=== PATIENT | male | born 1965 | race African-American/Black ===

== ENCOUNTER → 2019-03-28 | Outpatient (CLI) | payer OTHER ==
[~2019-03-28] MED LIST: ACETAMINOPHEN325 M1 PO; ADVIL200 M3 PO; ASPIR-LOW81 MG PO; COLACE 100 MG100 MG PO; IBUPROFEN 200200 M1; IBUPROFEN 200200 M1 PO; IBUPROFEN 600600 M1 PO; IRON325 M1 PO; KEFLEX500 M2 PO; LISINOPRIL-HCT1 EAC2 PO; LISINOPRIL10 MG PO; MAGNESIUM250 M1 PO; MIRALAX17 GM PO; MOTION RELIEF25 MG PO; MULTI VITAMIN1 EACH PO; OXYCODONE HCL 55 MG PO; POTASSIUM99 M1 PO; VALIUM2 MG PO; VITAMIN B-121000 MCG PO; VITAMIN C1000 MG PO; ZOFRAN ODT4 MG PO
== END ==
LOC: RAD 16:44
DX: M19.011 Primary osteoarthritis, right shoulder (principal); M75.91 Shoulder lesion, unspecified, right shoulder

== ENCOUNTER 2019-04-16 05:39 | Day surgery (SDC) | payer OTHER ==
[~2019-04-16] VITALS: Ht 167.6 cm; Wt 97.5 kg
[~2019-04-16 05:39] MED LIST changes: -ACETAMINOPHEN325 M1 PO; -COLACE 100 MG100 MG PO; -IBUPROFEN 200200 M1 PO; -KEFLEX500 M2 PO; -MIRALAX17 GM PO; -OXYCODONE HCL 55 MG PO
[2019-04-16 06:53] LABS: CALCIUM 9.6 mg/dL (8.5-10.1); CREATININE 1.4 mg/dL (0.7-1.3); POTASSIUM 3.2 mmol/L (3.5-5.1)
[2019-04-16 07:57] VITALS: BP 141/81
[2019-04-16] MEDS ORDERED: OXYCODONE HCL 55 MG PO (08:57)
[2019-04-16] MEDS ORDERED: IBUPROFEN 200200 M1 PO (08:57)
[2019-04-16] MEDS ORDERED: COLACE 100 MG100 MG PO (08:58)
[2019-04-16] MEDS ORDERED: ACETAMINOPHEN325 M1 PO (08:58)
[2019-04-16] MEDS ORDERED: MIRALAX17 GM PO (08:58)
[2019-04-16] MEDS ORDERED: KEFLEX500 M2 PO (08:59)
[2019-04-16 09:10] VITALS: BP 141/81
--- NOTE | 2019-04-16 17:04 | EKG ---
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
--- NOTE | 2019-04-17 17:06 | PATH ---
[facility] [address] [place] [address] PATHOLOGY RPT PROCEDURE Name: ANNETTE BARRIENTOS Room #: DEP [facility] [place] [place] M.R.#: [id number] Admission: 04/16/19 Date of : 69 Discharge: 04/16/19 Report #: [id number] Path Case #: [id number] [facility] Accession Number: [id number] . 01 Material submitted: . shoulder - RIGHT SHOULDER MASS. Modifiers: right . 01 Clinical history: . Localized swelling, mass and lump . 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 - One fragment comprised of pseudocyst lined by dense fibrous tissue associated with moderate chronic inflammation, compatible with repair. (IUV:erin; 04/17/2019) MBR 04/17/2019 1457 Local . 02 Electronically signed: . Lynne Rebolledo MD, Pathologist NPI- [id number] . 01 Gross description: . The specimen is received in formalin, labeled "Annette Barrientos, right shoulder mass". Received are two segments of pink-marie to yellow-marie fibroadipose tissue measuring 4.0 x 1.8 x 0.8 cm in aggregate dimensions. The surgical margins are inked. Sectioning reveals yellow-marie to pale marie cut surfaces throughout. The specimen is submitted representatively in cassette A1. (CAA; 04/16/2019) QAC/QAC 04/16/2019 1406 Local . 02 Pathologist provided ICD-10: D17.79 . 02 CPT . 879490 Specimen Comment: A courtesy copy of this report has been sent to [phone] Specimen Comment: [phone] Specimen Comment: Report sent to / DR LANE Performed at: [address] [id number] MD Sebas Mandujano MD Phone: [phone] Performed at: [address] [id number] [address] [address] PATHOLOGY RPT PROCEDURE Name: ANNETTE BARRIENTOS Room #: DEP [facility] [place] [place] Zaida#: [id number] Admission: 04/16/19 Date of : 69 Discharge: 04/16/19 Report #: [id number] Path Case #: [id number] MD Lynne Rebolledo MD Phone: [phone]
== END 2019-04-16 10:05 | disposition home or self-care (01) ==
LOC: OR 05:39 → TBA 05:42 → OR 10:05
PROVIDERS: Surgery
DX: D17.21 Benign lipomatous neoplasm of skin and subcutaneous tissue of right arm (principal); I10 Essential (primary) hypertension; Z98.890 Other specified postprocedural states; Z88.8 Allergy status to other drugs, medicaments and biological substances; Z79.899 Other long term (current) drug therapy; Z79.82 Long term (current) use of aspirin
CPT/HCPCS: 50010; 50101; 50386; 50417; 54118; 56524; 56526; 62110; 62850; 70005

== ENCOUNTER → 2021-06-23 | Outpatient (CLI) | payer OTHER ==
[~2021-06-23] MED LIST changes: +ACETAMINOPHEN325 M1 PO; +COLACE 100 MG100 MG PO; +IBUPROFEN 200200 M1 PO; +KEFLEX500 M2 PO; +MIRALAX17 GM PO; +OXYCODONE HCL 55 MG PO
== END ==
LOC: CAT 10:09
PROVIDERS: ATTEND Family Medicine
DX: Z13.6 Encounter for screening for cardiovascular disorders (principal)